=== PATIENT | female | born 1945 | race Caucasian/White ===

== ENCOUNTER 2017-08-11 08:30 | Observation (INO) | payer MEDICARE, MEDICAID ==
[~2017-08-11] VITALS: Ht 167.6 cm; Wt 102.6 kg
--- NOTE | ~2017-08-11 | HEMODYNAMI ---
PATIENT:EDSON TAYLOR MEDICAL RECORD: [id number] : 47 LOCATION:[address] ADMISSION DATE: 08/11/17 Generatedon:08/12/201715:20 Patient name: EDSON TAYLOR Patient #: [id number] SSN: : 1945 Date of study: 08/12/2017 Page: Of Hemodynamic Procedure Report Patient Data Patient Demographics Procedure consent was obtained First Name: EDSON Gender: Female Last Name: CLAUDIA : 1945 Patient #: [id number] Age: 72 year(s) Race: Unknown Additional ID: [id number] Contact details [address]: [address] [place] [address] State: [place] City: [place] Zip code: [address] Admission Admission Data Admission Date: 08/11/2017 Admission Time: 20:54 Room #: 2122 Procedure Procedure Types Cath Procedure Diagnostic Procedure LHC LH w/Coronaries Miscellaneous Procedures Moderate Sedation up to 15 minutes Procedure Description Procedure Date Procedure Date: 08/12/2017 Procedure Start Time: 14:53 Procedure End Time: 15:16 Procedure Staff Name Function Teodoro Sequeira RT Monitor Chris Blackwood RN Nurse Ba Lemus MD Performing Physician Kinza Sheikh RT Scrub Janny Marques RT Monitor Procedure Data Cath Procedure Fluoroscopy Diagnostic fluoroscopy Total fluoroscopy Time: 0 time: 0 min min Diagnostic fluoroscopy Total fluoroscopy dose: 456 dose: 456 mGy mGy Contrast Material Contrast Material Type Amount (ml) Isovue 300 99 Entry Location Entry Primary Successful Side Size Upsize Upsize Entry Closure Nunes ccessful Closure Location (Fr) 1 (Fr) 2 (Fr) Remarks Device Remarks Radial Right 6 Fr Mechanical artery Short Compression Estimated blood loss: 10 ml Diagnostic catheters Device Type Used For End Catheter Placement DIAGNOSTIC [place] 110cm 5 Procedure Fr catheter ([id number]) DIAGNOSTIC AR MOD 5Fr Procedure Catheter ([id number]) DIAGNOSTIC Pigtail 5Fr Procedure catheter ([id number]) Procedure Complications No complications Procedure Medications Medication Administration Route Dosage Oxygen NC 2 l/min Fentanyl I.V. 50 mcg Versed I.V. 1 mg Fentanyl I.V. 50 mcg Versed I.V. 1 mg Heparin Flush Bag added to field 2 bags (1000units/500ml NS) Radial Cocktail added to field 1 syringe (Verapomil 2mg/Nitro 400mcg/Heparin 1500units) Radial Cocktail I.A. 1 syringe (Verapomil 2mg/Nitro 400mcg/Heparin 1500units) 0.9% NaCl I.V. 100 ml/hr Fentanyl I.V. 50 mcg Fentanyl I.V. 50 mcg Hemodynamics Rest Heart Rate: 105 (bpm) Pressure Samples Time Site Value (mmHg) Purpose Heart Use Rate(bpm) 15:05 LV 119/35,23 Snapshot 109 15:06 LV 91/19,14 Pullback 104 15:06 AO 114/52(79) Pullback 104 Gradients Valve Time Site 1 Site 2 Mean SEP/DFP Peak To Heart Use (mmHg) (sec/min) Peak Rate (mmHg) (bpm) Aortic 15:06 LV AO 0 8 0 104 91/19,14 114/52(79) Calculations Valve P-P Mean Valve Index Valve Source Name Gradient Area Flow (cm2) Aortic 0 0 0 0 Snapshots Pre Cath Intra NCS Post Cath Vital Signs Time Heart Resp SPO2 etCO2 NIBP (mmHg) Rhythm Pain Sedation Rate (ipm) (%) (mmHg) Status Level (bpm) 14:41:22 157 17 98 0 156/95(125) NSR 0 (11) 10(A) , No pain 14:45:54 117 18 94 0 151/83(118) NSR 0 (11) 10(A) , No pain 14:50:29 119 17 94 0 137/80(117) NSR 0 (11) 10(A) , No pain 14:54:53 107 18 94 0 108/88(102) NSR 0 (11) 10(A) , No pain 14:59:11 110 18 90 0 110/65(91) NSR 0 (11) 10(A) , No pain 15:03:25 107 18 90 0 124/81(104) NSR 0 (11) 10(A) , No pain 15:08:51 119 18 90 0 128/73(105) NSR 0 (11) 10(A) , No pain 15:13:02 107 20 92 0 127/85(97) NSR 0 (11) 10(A) , No pain 15:17:02 0 No Cuff NSR 0 (11) 10(A) , No pain Medications Time Medication Route Dose Verified Delivered Reason Notes Effectiveness by by 14:42:13 Oxygen NC 2 l/min Ba Perez Per [facility] Travon red MD 14:52:00 Fentanyl I.V. 50 mcg Ba Perez for sedation [facility] Travon Blackwood RN, MD 14:52:07 Versed I.V. 1 mg Ba Perez for sedation [facility] Travon Blackwood RN, MD 14:55:05 Fentanyl I.V. 50 mcg Ba Perez for sedation [facility]. Travon Blackwood RN, MD 14:55:09 Versed I.V. 1 mg Ba Perez for sedation [facility]. Travon Blackwood RN, MD 14:55:18 Heparin Flush added 2 bags Ba Perez used for Bag to [facility] Travon Blackwood RN procedure (1000units/500ml field DIXON NS) 14:55:29 Radial Cocktail added 1 Ba Perez used for (Verapomil to syringe [facility] Travon Blackwood RN procedure 2mg/Nitro field DIXON 400mcg/Hepari 14:55:32 Radial Cocktail I.A. 1 Ba Ba for (Verapomil syringe [facility] vasodilation 2mg/Cynthia DIXON MD 400mcg/Hepari 14:55:45 0.9% NaCl I.V. 100 Ba Perez Per ml/hr [facility] Travon red MD 15:00:32 Fentanyl I.V. 50 mcg Ba Medranoy for sedation [facility] Travon Blackwood RN, MD 15:03:45 Fentanyl I.V. 50 mcg Ba Medranoy for sedation [facility] Travon Blackwood RN, MD Procedure Log Time Note 14:10:36 Chris Blackwood RN sent for patient. Start room use. 14:33:45 Time tracking: Regular hours 14:33:49 Plan of Care:Hemodynamics will remain stable., Cardiac rhythm will remain stable., Comfort level will be maintained., Respiratory function will remain adequate., Patient/ family verbilizes understanding of procedure., Procedure tolerated without complication., Recovers from procedure without complications.. 14:34:04 Patient received from PCU to CCL 3 Alert and oriented. Tansferred to table in Supine position. 14:34:05 Warm blankets applied, and bella hugger turned on for patient comfort. 14:34:06 Correct patient and procedure confirmed by team. 14:34:07 ECG and BP/O2 sat monitors applied to patient. 14:34:07 Signed procedure consent form obtained from patient. 14:40:00 Vital chart was started 14:42:13 Oxygen 2 l/min NC was administered by Chris Blackwood RN; Per physician; 14:49:21 Baseline sample Acquired. 14:49:25 Rhythm: sinus tachycardia 14:49:27 Full Disclosure recording started 14:49:31 H&P Date Dictated: 08/12/2017 Within 30 days and on chart.. 14:49:32 Pre-op teaching completed and patient verbalized understanding. 14:49:33 Pre-procedure instructions explained to patient. 14:49:35 Family in patients room. 14:49:36 Patient NPO since Midnight. 14:49:40 Is the patient allergic to Iodine/contrast media? No. 14:49:42 Is patient on blood thinner?No 14:49:43 Patient diabetic? Yes. 14:49:44 If diabetic: On Metformin? Unknown 14:49:45 Patient not . Patient is over age 55. 14:49:47 Previous problem with sedation/anesthesia? No ? 14:49:49 Snore? Yes 14:49:50 Sleep apnea? Yes 14:49:52 Opens mouth fully? Yes 14:49:52 Deviated septum? No 14:49:53 Sticks out tongue? Yes 14:49:57 Airway obstruction? Yes Asthma 14:50:02 Dentures? Yes OUT 14:50:05 Pre procedure: right dorsailis pedis pulse 1+ Palpable, but thready & weak; easily obliterated 14:50:06 Modified Clark's test Ulnar < 7 seconds 14:50:07 Patient pain scale 0/10 ?. 14:50:14 IV patent on arrival in left wrist with 0.9% NaCl at KVO. 14:50:15 Lab results completed and on chart. 14:50:18 Right Radial & Right Groin area was prepped with chlora-prep and draped in sterile fashion 14:50:19 Sharps counted by scrub and verified by R.N. 14:50:19 Alarms reviewed by R. N. 14:50:21 --------ALL STOP TIME OUT------ 14:50:22 Final Timeout: patient, procedure, and site verified with staff and physician. All members of the team are in agreement. 14:50:24 Right Radial & Right Groin site verified by team. 14:50:28 Physical assessment completed. ASA score P 2 - A patient with mild systemic disease as per Ba Lemus MD. 14:50:31 Sedation plan: IV Moderate Sedation Medication:Versed, Fentanyl 14:52:00 Fentanyl 50 mcg I.V. was administered by Chris Blackwood RN; for sedation; 14:52:07 Versed 1 mg I.V. was administered by Chris Blackwood RN; for sedation; 14:53:27 Use device set Radial Dx 14:53:29 ACIST Manifold (89304) opened to sterile field. 14:53:29 Tegaderm 4 x 4 (1626W) opened to sterile field. 14:53:30 ACIST Hand Control (53615) opened to sterile field. 14:53:31 Medline Cath Pack ([id number]) opened to sterile field. 14:53:31 ACIST Syringe (50524) opened to sterile field. 14:53:32 DIAGNOSTIC WIRE .035 260cm J wire (703033) opened to sterile field. 14:53:32 SHEATH 6FR Slender ([id number]) opened to sterile field. 14:53:32 Bag Decanter (2002S) opened to sterile field. 14:53:33 MBrace Wrist Support ([id number]) opened to sterile field. 14:53:37 Procedure started. 14:53:41 Local anesthetic to right radial artery with Lidocaine 2% by Ba Lemus MD.INITIAL ACCESS ONLY 14:53:59 A 6 Fr Short sheath was inserted into the Right Radial artery 14:54:09 A DIAGNOSTIC [place] 110cm 5 Fr catheter (754836) was advanced over the wire and used for Procedure. 14:55:05 Fentanyl 50 mcg I.V. was administered by Chris Blackwood RN; for sedation; 14:55:09 Versed 1 mg I.V. was administered by Chris Blackwood RN; for sedation; 14:55:18 Heparin Flush Bag (1000units/500ml NS) 2 bags added to field was administered by Chris Blackwood RN; used for procedure; 14:55:29 Radial Cocktail (Verapomil 2mg/Nitro 400mcg/Heparin 1500units) 1 syringe added to field was administered by Chris Blackwood RN; used for procedure; 14:55:32 Radial Cocktail (Verapomil 2mg/Nitro 400mcg/Heparin 1500units) 1 syringe I.A. was administered by Ba Lemus MD; for vasodilation; 14:55:45 0.9% NaCl 100 ml/hr I.V. was administered by Chris Blackwood RN; Per physician; 14:56:56 LCA angiography performed. 15:00:16 Catheter exchanged over wire. 15:00:32 Fentanyl 50 mcg I.V. was administered by Chris Blackwood RN; for sedation; 15:01:11 A DIAGNOSTIC AR MOD 5Fr Catheter (178117M) was advanced over the wire and used for Procedure. 15:02:17 RCA angiography performed. 15:02:19 Catheter exchanged over wire. 15:02:43 A DIAGNOSTIC Pigtail 5Fr catheter ([id number]) was advanced over the wire and used for Procedure. 15:03:45 Fentanyl 50 mcg I.V. was administered by Chris Blackwood RN; for sedation; 15:05:37 LV angiography performed. 15:05:38 LV gram done using KIRK 15:05:56 EF : 25 % 15:06:04 LV hemodynamics recorded. 15:06:14 Injector settings: Ml/sec: 10, Volume: 20, 15:06:16 Catheter removed. 15:06:26 TR BAND Large ([id number]) opened to sterile field. 15:06:42 Sheath removed intact; hemostasis achieved with Mechanical Compression to the Right Radial artery. 15:06:44 Procedure ended.(Physican Out) 15:06:47 TR band inflated with 12cc of air. 15:08:02 Insertion/operative site no bleeding no hematoma. 15:08:04 Post Procedure Pulses reassessed and unchanged 15:08:08 Post-procedure physical assessment completed. ASA score P 2 - A patient with mild systemic disease as per Ba Lemus MD. 15:08:17 Post procedure rhythm: unchanged. 15:08:20 Estimated blood loss: 10 ml 15:08:22 Post procedure instruction explained to patient.Patient verbalizes understanding. 15:08:23 Patient needs reinforcement of post procedure teaching. 15:08:33 Procedure type changed to Cath procedure, Diagnostic procedure, LHC, LHC w/Coronaries, Miscellaneous Procedures, Moderate Sedation up to 15 minutes 15:09:00 Procedure and supply charges have been captured, reviewed, submitted and are correct. 15:09:03 Procedure Complication : No complications 15:16:02 Fluoroscopy time 00.00 minutes. 15:16:06 Fluoroscopy dose: 456 mGy 15:16:06 Flurop Dose total: 456 15:16:34 Contrast amount:Isovue 300 99ml. 15:16:36 Sharps counted by scrub and verified by R.N. 15:16:47 TR band inflated with 9cc of air. 15:16:50 Vital chart was stopped 15:16:51 See physician's report for complete and final results. 15:16:53 Report given to [facility]. 15:16:56 Patient transfered to [facility] with Bed. 15:16:58 Full Disclosure recording stopped 15:16:58 Procedure ended. 15:17:03 End room use (Document Last) Device Usage Item Name Manufacture Quantity Catalog Hospital Part Current Minima l Lot# / Number Charge Number Stock Stock Serial# Code Tegaderm 4 x 3M 1 1626W 201299 403749 [id number] 5 4 (1626W) ACIST Acist 1 54243 509967 006127 494307 5 Manifold Medical (88316) Systems Inc ACIST Hand Acist 1 93778 304963 781013 206051 5 Control Medical (93666) Systems Inc ACIST Acist 1 77632 190413 689648 366362 20 Syringe Medical (06104) Systems Inc Medline Cath Cardinal 1 [id number] 093732 32208 154072 5 Pack Health ([id number]) Bag Decanter Microtek 1 2001S 268647 97154 337762 5 (2001S) Medical Inc. SHEATH 6FR Terumo 1 [id number] 812398 081113 269850 40 Slender ([id number]) DIAGNOSTIC St Johann 1 230021 011314 737701 584124 30 WIRE .035 260cm J wire (700525) MBrace Wrist Advanced 1 140-0250-00 268171 00286 287407 5 Support Vascular ([id number]) Dynamics DIAGNOSTIC Terumo 1 40-8463 140995 866080 150653 5 [place] 110cm 5 Fr catheter (925648) DIAGNOSTIC Cardinal 1 [id number] 574222 183230 114522 15 AR MOD 5Fr Health Catheter (318615S) DIAGNOSTIC Cardinal 1 154100A 996047 549318 573285 5 Pigtail 5Fr Health catheter (093973P) TR BAND Terumo 1 [id number] 513257 195780 732078 40 Large ([id number]) Signature Audit [place] Stage Time Signature Unsigned Intra-Procedure 08/12/2017 Janny Marques 3:20:24 PM RT(R) Signatures Monitor : Teodoro Sequeira RT Signature : Date : Time : Monitor : Janny Marques Signature : RT Date : Time : [place] [address] [place] [address]
--- NOTE | 2017-08-11 20:40 | NUR ---
PT ARRIVED VIA EMS. IV LEFT FOREARM NOTED. SEGURA CATH NOTED. PT VS ARE 165/85 PULSE 112. PT C/O PAIN IN LEFT KNEE. WILL COMPLETE ASSESSMENT AND FOLLOW ORDERS. PT DENIES ANY OTHER NEEDS AT THIS TIME. WILL CPOC
[2017-08-11 21:26] VITALS: BP 165/85
--- NOTE | 2017-08-11 23:43 | NUR ---
PT C/O PAIN. DR HUITRON PAGED AND MORPHINE ORDER OBTAINED. TOMY STATED MORPHINE 2-4MG EVERY 2-4 HOURS. PT GIVEN MORPHINE. SEGURA INSERT DATE 08/11/17 [facility] PUT IT IN PRIOR TO EMS TRANSPORT. PT HAS IV LEFT FOREARM. PT DENIES ANY NEEDS AT THIS TIME WILL CPOC
[2017-08-12] VITALS: BP 120/46
[2017-08-12 03:21] LABS: ALBUMIN 3.6 g/dL (3.4-5.0); ALKALINE PHOSPHATASE 182 U/L (46-116); ALT (SGPT) 20 U/L (10-68); BILIRUBIN - TOTAL 1.15 mg/dL (0.2-1.3); CALC OSMOLALITY 286 mosm/kg (275-300); CALCIUM 8.9 mg/dL (8.5-10.1); CARBON DIOXIDE 26.7 mmol/L (21.0-32.0); CHLORIDE - SERUM 100 mmol/L (98-107); CREATININE - SERUM 1.5 mg/dL (0.6-1.3); GLUCOSE 260 mg/dL (74-106); POTASSIUM - SERUM 3.9 mmol/L (3.5-5.1); PROTEIN - SERUM 7.2 g/dL (6.4-8.2); SODIUM 139 mmol/L (136-145); UREA NITROGEN 13 mg/dL (7-18); eGFR NON AFRICAN AMERICAN 36 mL/min (90-120)
[2017-08-12 03:24] LABS: BASOPHILS 0.4 % (0-2); EOSINOPHILS 5.8 % (0-7); HEMATOCRIT 45.9 % (36.0-48.0); HEMOGLOBIN 15.7 g/dL (12-16); IMMATURE GRANULOCYTES 0.3 % (0-5); LYMPHOCYTES 21.2 % (15-50); MCHC 34.2 g/dL (31.0-37.0); MCV 87.6 fL (80.0-100.0); MEAN PLATELET VOLUME 10.8 fL (7.4-10.4); MONOCYTES 11.5 % (2-11); NEUTROPHILS 60.8 % (40-80); PLATELET COUNT 300 10x3/uL (130-400); RBC 5.24 10x6/uL (4.00-5.40); RDW 13.2 % (11.5-14.5); WBC 7.4 10x3/uL (4.8-10.8)
[2017-08-12 03:36] LABS: CKMB 7.3 U/L (0.0-3.6); CREATINE KINASE 177 UL (21-215)
[2017-08-12 03:43] LABS: TROPONIN-I 2.056 ng/mL (0.000-0.060)
[2017-08-12 04:20] VITALS: BP 165/85; BMI 38.3
[2017-08-12 06:27] VITALS: BP 117/59
--- NOTE | 2017-08-12 06:42 | NUR ---
PT RESTING IN BED. ASKING FOR PAIN MEDS AND A MED TO HELP WITH HER LEFT LEG CRAMPS. PT STATES THE MORPHINE HELPS WITH "A LAYER" OF THE PAIN BUT THAT IS ALL. PT DENIES ANY OTHER NEEDS WILL CPOC
--- NOTE | 2017-08-12 07:20 | NUR ---
PATIENT IN BED RESTING AT THIS TIME. NO COMPLAINTS VOICED. NO SIGNS OR SYMPTOMS OF DISTRESS NOTED. OXYGEN AT 2L PER NASAL CANNULA. RESPIRATIONS EQUAL AND NON LABORED.
[2017-08-12 08:05] VITALS: BP 131/60
--- NOTE | 2017-08-12 09:00 | NUR ---
PATIENT IN BED RESTING AT THIS TIME. PATIENT COMPLAINS OF PAIN IN CHEST AND RATES PAIN A 10 ON SCALE OF 0-10. PATIENT GIVEN PRN MORPHINE 4MG IVP AND STATES PAIN IS NOW A 2 ON A SCALE OF 0-10. PATIENT DENIES SHORTNESS OF BREATH AT THIS TIME AND NO SIGNS OF DISTRESS NOTED AT THIS TIME.
--- NOTE | 2017-08-12 10:00 | NUR ---
ATTEMPTED TO APPLY SCDS AT THIS TIME. PATIENT REFUSED SCD TO BLE. EDUCATED PATIENT ON DVT PREVENTION AND PATIENT CONTINUED TO REFUSE.
[2017-08-12 10:45] LABS: BASOPHILS 0.3 % (0-2); EOSINOPHILS 6.4 % (0-7); HEMATOCRIT 48.3 % (36.0-48.0); HEMOGLOBIN 16.2 g/dL (12-16); IMMATURE GRANULOCYTES 0.4 % (0-5); LYMPHOCYTES 18.6 % (15-50); MCH 29.7 pg (26.0-34.0); MCHC 33.5 g/dL (31.0-37.0); MCV 88.5 fL (80.0-100.0); MEAN PLATELET VOLUME 11.1 fL (7.4-10.4); MONOCYTES 11.5 % (2-11); NEUTROPHILS 62.8 % (40-80); PLATELET COUNT 299 10x3/uL (130-400); RBC 5.46 10x6/uL (4.00-5.40); RDW 13.4 % (11.5-14.5); WBC 7.5 10x3/uL (4.8-10.8)
[2017-08-12 10:51] LABS: ANION GAP 16.6 mmol/L (8-16); CALCIUM 9.1 mg/dL (8.5-10.1); CARBON DIOXIDE 25.5 mmol/L (21.0-32.0); CREATININE - SERUM 1.3 mg/dL (0.6-1.3); POTASSIUM - SERUM 4.1 mmol/L (3.5-5.1)
--- NOTE | 2017-08-12 12:31 | NUR ---
RESP UL ON . SAVAGE NEEDS AT THIS TIME. CALL LIGHT IN REACH. WILL MONITOR.
[2017-08-12 14:05] VITALS: Ht 167.6 cm; Wt 102.6 kg
--- NOTE | 2017-08-12 14:30 | NUR ---
PATIENT OUT FOR PROCEDURE IN TRANSIT MAN AT THIS TIME.
--- NOTE | 2017-08-12 15:30 | NUR ---
PATIENT RETURNS FROM CLAIMS SUPPORT SPECIALIST AT THIS TIME. TR BAND IN PLACE. NO PROBLEMS NOTED AT THIS TIME.
[2017-08-12] MEDS ORDERED: ALDACTONE25 MG PO (16:01)
[2017-08-12] MEDS ORDERED: ASPIRIN81 MG PO (16:10)
--- NOTE | 2017-08-12 17:27 | NUR ---
SPOKE WITH PATIENT'S FAMILY, PINKY AT THIS TIME. PINKY INDICATED FAMILY WOULD ARRIVE TO [facility] PATIENT AROUND 2030 TONIGHT.
--- NOTE | 2017-08-12 19:49 | NUR ---
PT UP TO BSC, MODERATE AMOUNT OF LOOSE STOOL. ASSISTED PT WITH CLEANING UP. PT C/O PAIN AND NAUSEA. WILL GIVE PRN MEDS. REMOVED PT SEGURA. PT C/O NEEDING HELP WITH A RIDE HOME. PT DENIES ANY OTHER NEEDS. NO S/S OF DISTRESS. WILL CPOC
[2017-08-12 22:15] VITALS: BP 146/73
[2017-08-13 04:00] VITALS: BP 134/77
--- NOTE | 2017-08-13 07:15 | NUR ---
RECIEVED RPEORT ON PATIENT, PATIENT IS SLEEPING AT THIS TIME. NAD NOTED. CHEST RISES AND FALLS EQUALLY. BED IS LOW AND LOCKED. CALL LIGHT IN REACH. WILL CONT TO MONITOR PATIENT. CPOC
[2017-08-13 08:34] VITALS: BP 125/47
--- NOTE | 2017-08-13 09:45 | NUR ---
SERGIO WITH CASE MANAGEMENT WORKING WITH PATIENT, PATIENTHAS DC ORDER BUT STATES SHE DOES NOT HAVE A RIDE HOME. CPOC
--- NOTE | 2017-08-13 11:59 | NUR ---
PATIENT GIVEN DC INSTRUCTIONS. RIDE IS HERE. PATIENT DENIES ANY QUESTIONS. PATIENT READY FOR DC
--- NOTE | 2017-08-13 17:54 | NUR ---
Patient Name: EDSON TAYLOR Admission Status: CO Accout number: [id number] Admission Date: 08-11-2017 : 1945 Admission Diagnosis: Attending: CHIRSTOFER HUITRON Current LOS: 2 Anticipated DC Date: 08-13-2017 Planned Disposition: Home Primary Insurance: [facility] LATE ENTRY: Discharge Planning Comments: * Is the patient Alert and Oriented? Yes 0 * How many steps to enter\exit or inside your home? 3 0 * PCP [facility] * Pharmacy [facility] 0 * Preadmission Environment Home Alone 0 * ADLs Independent 0 * Equipment Bedside Commode Rolling Walker Shower Chair 0 * Other Equipment NO MEDICAL EQUIPMENT PROVIDER PREFERENCE 0 * List name and contact numbers for known caregivers / representatives who currently or will assist patient after discharge: CIRILO HURST, 0 * Community resources currently utilized Other 0 * Please name any agencies selected above. [facility] NURSE VISITS ONCE WEEKLY FOR CASE MANAGEMENT 0 * Additional services required to return to the preadmission environment? No 0 * Can the patient safely return to the preadmission environment? Yes 0 * Has this patient been hospitalized within the prior 30 days at any hospital? No 0 CM MET WITH PT IN ROOM TO DISCUSS DISCHARGE PLANNING AND NEEDS. PT REPORTS LIVING AT HOME INDEPENDENTLY AND ALONE. PT REPORTS HAVING ALL NEEDED MEDICAL EQUIPMENT AND NO PROVIDER PREFERENCE; PT HAS NO OUTSIDE SERVICES ASSISTING IN THE HOME. CM DISCUSSED AVAILABILITY OF HOME HEALTH, REHAB SERVICES AND MEDICAL EQUIPMENT. PT DENIES DISCHARGE NEEDS, REPORTS SHE HAS CALLED FAMILY LAST NIGHT AN HAVING NO WAY HOME; PT DENIES FUNDS TO PAY FOR TRANSPORT HOME. CM EXAMINED PT'S HEALTH INSURANCE CARD, LOCATED TRANSPORTATION ASSISTANCE LINE; CM CALLED ; PT DOES QUALIFY FOR TRANSPORTATION PER [facility], BUT HAS A 6O MILE LIMIT AND PT'S HOME IS 82 [address] FROM [place]. PT NEEDS A PRIOR AUTH FROM [facility]; CM CALLED [phone], , AND [employer] AT [phone]; CM WAS NOT ABLE TO OBTAIN AN AUTHORIZATION FOR THE ADDITIONAL 22 MILES TO GET PT HOME. CM EXPRESSED DISPLEASURE WITH EACH REPRESENTIVE FROM PT'S INSURANCE COMPANY THAT CM SPOKE TO; CM EXPRESSED CONCERN THAT THIS PROCESS HAS TAKEN MULTIPLE CALLS, MANY-MANY TRANSFERS , SEVERAL HOURS AND STILL WITHOUT RESULT OR ANY ASSISTANCE WITH PT'S POST DISCHARGE TRANSPORTATION; CM ASKED HOW MANY DAYS THERE WERE FOR OPEN ENROLLMENT WITH INTENTION OF SPEAKING TO PT REGARDING THE RESULT OF DEALING WITH HER INSURANCE COMPANY; BEDSIDE NURSE ADVISED CM THAT PT'S COUSIN ARRIVED TO PICK HER UP, PT HAD DISCHARGE HOME WITH ASSISTANCE OF FAMILY. Calker: Martínez Little
--- NOTE | 2017-08-19 12:19 | OP ---
PATIENT NAME: EDSON TAYLOR MEDICAL RECORD: [id number] :[birth year] LOCATION:[address] ADMISSION DATE:08/11/17 SURGEON: MAURICIO BARRAZA MD DATE OF OPERATION: 08/12/2017 PROCEDURE: Left heart catheterization, selective coronary angiography, right radial approach. CATHETERS: Radial sheath, Lincoln catheter. The procedure was well tolerated. The patient returned to turner. Sheath was removed. TR band was placed. FINDINGS: Left ventriculography in 30-degree KIRK view, global LV hypokinesis, basically inferior hypokinesis. Overall, LV function reduced 20%, LVEDP was elevated at 23 mmHg as well. CORONARY ANATOMY: 1. Left main: Left main is free of disease. 2. LAD: Free of disease in the diagonal system. 3. Circumflex: Free of disease in the marginal system. 4. Right coronary artery is totally occluded and fills via left to right collaterals. IMPRESSION: Cardiomyopathy, coronary artery disease. Cardiomyopathy is in excess of ischemic burden here. I suspect she has ischemic cardiomyopathy superimposed, perhaps hypertensive cardiomyopathy. Medical therapy recommended. TRANSINT:[id number] Voice Confirmation ID: [id number] DOCUMENT ID: [id number] MAURICIO BARRAZA MD at 1219 CC: [id number] DICTATION DATE: 08/12/17 1519 COLLEGE DIRECTOR: 08/12/17 1654 DIS IN 08/13/17 [id number] [place] [address]
== END 2017-08-13 11:59 | disposition home or self-care (01) ==
LOC: EDSTATUS 08:30 → D.MS 19:11 → OBSVTIME 20:54 → D.M2 20:54
PROVIDERS: ADMIT Internal Medicine Cardiovascular Disease
PROC: B2151ZZ Fluoroscopy of Left Heart using Low Osmolar Contrast (ICD-10-PCS; 2017-08-12)
PROC: 4A023N7 Measurement of Cardiac Sampling and Pressure, Left Heart, Percutaneous Approach (ICD-10-PCS; 2017-08-12)
PROC: B2111ZZ Fluoroscopy of Multiple Coronary Arteries using Low Osmolar Contrast (ICD-10-PCS; principal; 2017-08-12 08:30)
DX: I21.4 Non-ST elevation (NSTEMI) myocardial infarction (principal); I25.10 Atherosclerotic heart disease of native coronary artery without angina pectoris; I11.0 Hypertensive heart disease with heart failure; I50.9 Heart failure, unspecified; I25.5 Ischemic cardiomyopathy; E78.5 Hyperlipidemia, unspecified; E11.9 Type 2 diabetes mellitus without complications